=== PATIENT | male | born 1965 | race Caucasian/White ===

== ENCOUNTER 2023-08-01 12:56 | Emergency (ER) | payer MEDICARE, OTHER ==
[2023-08-01] MEDS: Nitroglycerin 0.4 MG Tab.SL SL ONE (13:17)
[2023-08-01] MEDS: Sodium Chloride 0.9% 1,000 ML IV SCH (13:18)
[2023-08-01 13:26] LABS: BASOPHILS ABSOLUTE AUTO 0.2 x10-3/uL (0.0-0.3); BASOPHILS PERCENT AUTO 1.9 % (0.3-3.8); EOSINOPHILS ABSOLUTE AUTO 0.1 x10-3/uL (0.0-0.6); EOSINOPHILS PERCENT AUTO 1.1 % (0.1-6.8); HEMATOCRIT 42.9 % (38.3-50.1); HEMOGLOBIN 14.4 g/dL (12.9-17.7); LYMPHOCYTES PERCENT AUTO 29.8 % (15.8-45.3); MEAN CORPUSCULAR HEMOGLOBIN 32.4 pg (27.0-33.3); MEAN CORPUSCULAR HGB CONC 33.6 g/dL (28.7-35.3); MEAN CORPUSCULAR VOLUME 96.4 fL (80.8-98.7); MEAN PLATELET VOLUME 9.2 fL (6.7-11.0); MONOCYTES PERCENT AUTO 10.4 % (5.5-15.2); NEUTROPHILS ABSOLUTE AUTO 5.7 x10-3/uL (1.7-6.9); NEUTROPHILS PERCENT AUTO 56.8 % (40.3-71.8); PLATELET COUNT,PLT 291 x10(3)uL (117-477); RED BLOOD CELL COUNT 4.45 x10(6)uL (3.90-5.90); RED CELL DISTRIBUTION WIDTH 14.8 % (12.4-15.0); WHITE BLOOD CELL COUNT,WBC 10.1 x10-3/uL (3.2-10.1)
[2023-08-01] MEDS: Ketorolac 30 MG/ML SDV IVPUSH ONE (13:26)
[2023-08-01 13:35] LABS: A/G RATIO 0.7; ALANINE AMINOTRANSFERASE,ALT 19 U/L (12-36); ALKALINE PHOSPHATASE 72 IU/L (56-112); ASPARTATE AMNIOTRANSFERASE,AST 17 IU/L (5-25); BILIRUBIN TOTAL 0.4 mg/dL (0.1-1.3); BLOOD UREA NITROGEN,BUN 14 mg/dL (7-18); BUN/CREATININE RATIO 8.2 (9-20); CALCIUM 8.5 mg/dL (8.6-10.2); CARBON DIOXIDE,CO2 26 mmol/L (21-32); CHLORIDE,CL 101 mmol/L (100-110); CREATININE 1.7 mg/dL (0.70-1.30); EST CRCL DRUG DOSING (CG) 40.14 mL/min; ESTIMATED GFR 46 mL/min (>60); GLUCOSE RANDOM 154 mg/dL (80-116); POTASSIUM,K 3.6 mmol/L (3.5-5.3); PROTEIN TOTAL,TP 7.5 g/dL (6.0-8.0); SODIUM,NA 136 mmol/L (135-145)
[2023-08-01 13:41] LABS: TROPONIN I 12.4 pg/mL (4.0-60.3)
== END 2023-08-01 15:21 | disposition home or self-care (01) ==
LOC: FB.ED 12:56
DX: R07.81 Pleurodynia (principal); N18.9 Chronic kidney disease, unspecified; K21.9 Gastro-esophageal reflux disease without esophagitis; Z79.899 Other long term (current) drug therapy; Z86.16 Personal history of COVID-19
CPT/HCPCS: 36415; 71045; 80053; 83880; 84484; 85025; 93005; 96361; 96374; 99285; J1885; J7030; 93010; 99284